=== PATIENT | female | born 1995 | race Caucasian/White ===

== ENCOUNTER 2018-07-12 06:29 | Emergency (ER) | payer OTHER ==
--- NOTE | 2018-07-12 07:00 | EDPHY ---
HPI/HX/ROS/PE/MDM Narrative: CHIEF COMPLAINT: Tongue swelling HPI: This patient is a healthy 23 year old female. She presents today complaining of swelling around her tongue piercing beginning two days ago. She has been on Accutane for 15 days and is concerned she may be having a reaction around the area of her tongue piercing. She is not unable to remove the piercing due to the swelling. She has never had any difficulty with the piercing before beginning Accutane and has had it for several years. She complains of mild facial swelling as well but states this is an anticipated side effect. She presents primarily for assistance in removing the piercing. She has no further complaints at this time. No urticaria, erythema, difficulty breathing or swallowing, fever, or other associated symptoms. REVIEW OF SYSTEMS: A comprehensive 10 system review of systems is otherwise negative aside from elements mentioned in the history of present illness and medical decision making. PMH: Past surgical history includes R knee ACL, T&A, wisdom teeth. She is currently taking Accutane for acne. SOCIAL HISTORY: Single. Student. Lives in [place]. PHYSICAL EXAM: General:Patient is alert, in no acute distress. ENT: Tongue piercing in place underneath surface of tongue. Otherwise normal ENT inspection. Eyes are normal to inspection. No appreciable tongue swelling or induration. Mild facial erythema. Neck: Normal inspection. Full range of motion. Respiratory:No respiratory distress. Breath sounds normal bilaterally. Neuro: Oriented x3. Normal motor function. Normal sensory function. ED Course: Healthy 23 y/o female presents for removal of her tongue piercing. Exam largely unremarkable apart from frenulum linguae piercing. No notable erythema, swelling , or discharge from the area. Plan to remove the patient's piercing. Procedure: Tongue piercing removal Patient's tongue piercing was removed using two curved hemostats. No anesthetic was required. There were no complications. The procedures was performed by myself, Dr. Montoya. 08:12 Patient tolerated the procedure well. She has no further complaints and is relieved that the piercing has been removed successfully. Plan to discharge home in good condition. Follow up and return precautions discussed. The patient is comfortable with this plan. MDM: This patient presents with discomfort associated with tongue piercing, possibly caused by mild facial swelling secondary to Accutane use. I see no signs of glossitis or other infection. General Time Seen by Provider: 07/12/18 06:58 Initial Vital Signs: Initial Vital Signs Temperature (C) 37 C 07/12/18 06:36 Heart Rate 87 07/12/18 06:36 Respiratory Rate 16 07/12/18 06:36 Blood Pressure 111/67 07/12/18 06:36 O2 Sat (%) 96 07/12/18 06:36 O2 Delivery Mode Room Air Allergies/Adverse Reactions: amoxicillin Allergy (Intermediate, Verified 07/12/18 06:35) Rash Penicillins Allergy (Intermediate, Verified 07/12/18 06:35) Rash walnut Allergy (Intermediate, Verified 07/12/18 06:35) Rash Sulfa (Sulfonamide Antibiotics) Allergy (Mild, Verified 07/12/18 06:35) Other-Enter Comments Home Medications: Medication Instructions Recorded Accucaine Kit 07/12/18 Nexplanon 07/12/18 Departure - Departure Disposition: Home, Routine, Self-Care Clinical Impression: Body piercing, Body piercing removal Condition: Good Instructions: Additional Information Additional Instructions: Follow up with your primary care provider in 2-3 days. Return to the Emergency Department for fever, redness, discharge from the area, increasing pain or other worsening of condition. Return to the Emergency Department if you develop shortness of breath, difficulty swallowing, difficulty breathing, rash, fever, or other worsening of condition. Referrals: Henri Christian MD [[facility] [place]] - As per Instructions Report Scribed for: Meek Montoya Report Scribed by: Didi Freeman Date of Report: 07/12/18 Time of Report: 07:11 Physician Review and Approval Statement: Portions of this note were transcribed by an ED scribe. I personally performed the history, physical exam, and medical decision making; and confirm the accuracy of the information in the transcribed note.
[2018-07-12 08:19] VITALS: BP 100/60
== END 2018-07-12 08:18 | disposition home or self-care (01) ==
DX: R60.9 Edema, unspecified (principal); Z18.9 Retained foreign body fragments, unspecified material